=== PATIENT | female | born 1995 | race Caucasian/White ===

== ENCOUNTER 2021-03-26 18:35 | Emergency (ER) | payer OTHER ==
[~2021-03-26 18:35] MED LIST: AUGMENTIN 875-1 EACH PO; AZO URINARY P99.5 MG PO; BACTRIM DS TAB1 EACH PO; BACTROBAN OINT22 GM EXT; Bromphed DM PO; CIPRO500 MG PO; COLACE 100MG C100 MG PO; FLONASE 0.05% N16 GM; IBUPROFEN600 MG PO; NORCO 5-325 TA1 EACH PO
[2021-03-26 20:16] LABS: HEMOGLOBIN 13.9 gm/dl (12.3-15.3); RED BLOOD COUNT 4.35 M/UL (4.00-5.10); WHITE BLOOD COUNT 11.3 K/UL (4.5-11.0)
[2021-03-26 20:36] LABS: BUN/CREATININE RATIO 16 (0-10)
[2021-03-26] MEDS ORDERED: ZOFRAN ODT 4 MG4 MG SL (21:13)
== END 2021-03-26 21:20 | disposition home or self-care (01) ==
LOC: ER1 18:35
PROVIDERS: Emergency Medicine
DX: Z32.02 Encounter for pregnancy test, result negative (principal); I10 Essential (primary) hypertension; F17.200 Nicotine dependence, unspecified, uncomplicated
CPT/HCPCS: 80053; 81001; 83690; 84702; 85025; 99284

== ENCOUNTER 2021-09-10 20:40 | Emergency (ER) | payer OTHER ==
[~2021-09-10 20:40] MED LIST changes: +ZOFRAN ODT 4 MG4 MG SL
[2021-09-10 21:41] LABS: HEMOGLOBIN 15.2 gm/dl (12.3-15.3); RED BLOOD COUNT 4.59 M/UL (4.00-5.10); WHITE BLOOD COUNT 13.3 K/UL (4.5-11.0)
[2021-09-10 22:01] LABS: BUN/CREATININE RATIO 13 (0-10)
== END 2021-09-11 00:21 | disposition left against medical advice (07) ==
LOC: ER1 20:40
PROVIDERS: Family Medicine
DX: R07.9 Chest pain, unspecified (principal); M79.602 Pain in left arm; I10 Essential (primary) hypertension; F17.210 Nicotine dependence, cigarettes, uncomplicated
CPT/HCPCS: 71045; 80053; 82550; 82553; 83874; 84484; 85025; 93005; 99283

== ENCOUNTER 2022-02-12 19:56 | Emergency (ER) | payer OTHER ==
[2022-02-12 21:03] LABS: RED BLOOD COUNT 4.41 M/UL (4.00-5.10); WHITE BLOOD COUNT 10.4 K/UL (4.5-11.0)
[2022-02-12 21:24] LABS: BUN/CREATININE RATIO 15 (0-10)
[2022-02-12] MEDS ORDERED: BENTYL 20MG TAB20 MG PO (23:38)
== END 2022-02-13 00:10 | disposition home or self-care (01) ==
LOC: ER1 19:56
PROVIDERS: Physician Assistant
DX: R10.31 Right lower quadrant pain (principal); R10.11 Right upper quadrant pain; F17.210 Nicotine dependence, cigarettes, uncomplicated; I10 Essential (primary) hypertension
CPT/HCPCS: 80053; 81001; 83690; 84703; 85025; 87086; 96361; 96374; 99284; J1885; Q9967

== ENCOUNTER 2022-04-16 20:11 | Emergency (ER) | payer OTHER ==
[~2022-04-16 20:11] MED LIST changes: +BENTYL 20MG TAB20 MG PO
[2022-04-16] MEDS ORDERED: AMOXICILLIN500 M1 PO (22:30)
[2022-04-16] MEDS ORDERED: NAPROSYN500 MG PO (22:30)
== END 2022-04-16 22:49 | disposition home or self-care (01) ==
LOC: ER1 20:11
DX: K02.9 Dental caries, unspecified (principal); K05.10 Chronic gingivitis, plaque induced
CPT/HCPCS: 99282